=== PATIENT | male | born 1955 | race Caucasian/White ===

== ENCOUNTER 2017-02-19 00:52 | Inpatient (IN) | payer OTHER ==
[2017-02-19] VITALS (23 sets, daily range): BP systolic 92–121; BP diastolic 49–81
[~2017-02-19] VITALS: Ht 172.7 cm; Wt 62.4 kg
[2017-02-19 01:35] LABS: EOSINOPHILS % (AUTO) 2.8 % (1.0-6.0); LYMPHOCYTES # (AUTO) 0.5 K/uL (1.0-4.8); LYMPHOCYTES % (AUTO) 13.6 % (22.0-44.0); MEAN CORPUSCULAR HGB CONC 31.3 G/dL (31.0-37.0); MEAN CORPUSCULAR VOLUME 70 fL (80-100); MONOCYTES # (AUTO) 0.7 K/uL (0.1-1.0); MONOCYTES % (AUTO) 17.1 % (2.0-9.0); NEUTROPHILS # (AUTO) 2.5 K/uL (1.8-7.7); NEUTROPHILS % (AUTO) 65.5 % (40.0-70.0); PLATELET COUNT (AUTO) 239 K/uL (150-450); RED BLOOD CELL COUNT(AUTO) 2.77 MIL/uL (4.50-5.90); WHITE BLOOD COUNT (AUTO) 3.9 K/uL (4.5-11.0)
[2017-02-19 01:36] LABS: HEMOGLOBIN 6.1 g/dL (13.5-17.5)
[2017-02-19 01:42] LABS: HEMATOCRIT 19.5 % (41-53)
[2017-02-19 01:49] LABS: ALANINE AMINOTRANSFERASE 49 U/L (12-78); ALBUMIN 2.8 g/dL (3.4-5.0); ANION GAP 8 mmol/L (8-16); ASPARTATE AMINOTRANSFERASE 83 U/L (15-37); BILIRUBIN,TOTAL 0.7 mg/dL (0.1-1.0); CALCIUM, TOTAL 7.9 mg/dL (8.8-10.5); CARBON DIOXIDE 26 mmol/L (22-29); CHLORIDE 97 mmol/L (98-107); CREATININE 0.81 mg/dL (0.60-1.30); GLOMERULAR FILTR. RATE CALC > 60 mL/min (>60); SODIUM SERUM 131 mmol/L (136-145); TOTAL PROTEIN, SERUM 7.3 g/dL (6.4-8.2); UREA NITROGEN, BLOOD 11 mg/dL (7-18)
[2017-02-19 01:55] LABS: POTASSIUM 2.9 mmol/L (3.5-5.1)
[2017-02-19] MEDS ORDERED: POTASSIUM CHLORIDE 20 MEQ ER TABLET PO ONE (02:15)
[2017-02-19] MEDS ORDERED: MAGNESIUM SULFATE 2 GM, MVI, ADULT NO.1 WITH VIT K 10 ML, THIAMINE HCL 100 MG, FOLIC AC... IV ONE ×10 (02:15→06:45)
[2017-02-19 02:20] LABS: RBC MORPHOLOGY COMMENT ABNORMAL RBC MORPH
[2017-02-19] MEDS ORDERED: PANTOPRAZOLE SODIUM 80 MG in SODIUM CHLORIDE 0.9% 100 ML IV SCH (05:45)
[2017-02-19] MEDS ORDERED: PANTOPRAZOLE SODIUM 40 MG/VIAL IVP ONE (05:45)
[2017-02-19] MEDS ORDERED: SODIUM CHLORIDE 0.9% 1,000 ML IV ONE (06:02)
[2017-02-19] MEDS ORDERED: MORPHINE SULFATE 4 MG/ML SYRINGE IVP PRN (06:45)
[2017-02-19 08:46] LABS: INR 1.1 (0.9-1.1); PROTHROMBIN TIME 11.1 SEC (9.4-11.6)
[2017-02-19 08:48] LABS: BASOPHILS % (AUTO) 0.9 % (0.0-2.0); EOSINOPHILS % (AUTO) 3.1 % (1.0-6.0); LYMPHOCYTES # (AUTO) 0.6 K/uL (1.0-4.8); LYMPHOCYTES % (AUTO) 21.6 % (22.0-44.0); MEAN CORPUSCULAR HEMOGLOBIN 23.3 pg (26.0-34.0); MEAN CORPUSCULAR HGB CONC 32.1 G/dL (31.0-37.0); MEAN CORPUSCULAR VOLUME 73 fL (80-100); MONOCYTES # (AUTO) 0.4 K/uL (0.1-1.0); MONOCYTES % (AUTO) 17.1 % (2.0-9.0); NEUTROPHILS # (AUTO) 1.5 K/uL (1.8-7.7); NEUTROPHILS % (AUTO) 57.3 % (40.0-70.0); PLATELET COUNT (AUTO) 179 K/uL (150-450); RED CELL DISTRIBUTION WIDTH 19.8 % (11.5-14.5); WHITE BLOOD COUNT (AUTO) 2.6 K/uL (4.5-11.0)
[2017-02-19 08:51] LABS: ALANINE AMINOTRANSFERASE 40 U/L (12-78); ALBUMIN 2.3 g/dL (3.4-5.0); ANION GAP 7 mmol/L (8-16); ASPARTATE AMINOTRANSFERASE 75 U/L (15-37); BILIRUBIN,TOTAL 0.9 mg/dL (0.1-1.0); CALCIUM, TOTAL 7.1 mg/dL (8.8-10.5); CARBON DIOXIDE 26 mmol/L (22-29); CHLORIDE 103 mmol/L (98-107); GLOMERULAR FILTR. RATE CALC > 60 mL/min (>60); POTASSIUM 3.7 mmol/L (3.5-5.1); SODIUM SERUM 136 mmol/L (136-145); TOTAL PROTEIN, SERUM 6.2 g/dL (6.4-8.2); UREA NITROGEN, BLOOD 8 mg/dL (7-18)
[2017-02-19 08:54] LABS: HEMOGLOBIN 6.3 g/dL (13.5-17.5)
[2017-02-19 08:55] LABS: HEMATOCRIT 19.6 % (41-53)
[2017-02-19] MEDS ORDERED: THIAMINE HCL 100 MG/ML 2ML VIAL IM ONE (09:00)
[2017-02-19 10:10] LABS: RBC MORPHOLOGY COMMENT ABNORMAL RBC MORPH
[2017-02-19] MEDS ORDERED: MAGNESIUM HYDROXIDE SUSPENSION 30 ML UDCUP PO PRN (11:15)
[2017-02-19 15:13] LABS: BASOPHILS # (AUTO) 0.02 K/uL (0.00-0.20); BASOPHILS % (AUTO) 0.7 % (0.0-2.0); EOSINOPHILS # (AUTO) 0.12 K/uL (0.00-0.70); EOSINOPHILS % (AUTO) 3.75 % (1.0-6.0); HEMATOCRIT 25.4 % (41-53); LYMPHOCYTES # (AUTO) 0.8 K/uL (1.0-4.8); LYMPHOCYTES % (AUTO) 23.6 % (22.0-44.0); MEAN CORPUSCULAR HEMOGLOBIN 23.9 pg (26.0-34.0); MEAN CORPUSCULAR HGB CONC 31.7 G/dL (31.0-37.0); MEAN CORPUSCULAR VOLUME 75 fL (80-100); MONOCYTES # (AUTO) 0.6 K/uL (0.1-1.0); MONOCYTES % (AUTO) 19.2 % (2.0-9.0); NEUTROPHILS # (AUTO) 1.8 K/uL (1.8-7.7); NEUTROPHILS % (AUTO) 52.8 % (40.0-70.0); PLATELET COUNT (AUTO) 174 K/uL (150-450); RED BLOOD CELL COUNT(AUTO) 3.37 MIL/uL (4.50-5.90); RED CELL DISTRIBUTION WIDTH 19.3 % (11.5-14.5); WHITE BLOOD COUNT (AUTO) 3.3 K/uL (4.5-11.0)
[2017-02-19 15:38] LABS: RBC MORPHOLOGY COMMENT ABNORMAL RBC MORPH
[2017-02-19] MEDS ORDERED: PERMETHRIN 5% 60 GM CREAM TP ONE (15:45)
[2017-02-19] MEDS ORDERED: PNEUMOCOCCAL VACCINE POLYVALENT 0.5 ML VIAL [PPSV23] IM ONE (19:15)
[2017-02-19] MEDS: DOCUSATE SODIUM 100 MG CAPSULE PO SCH (20:32)
[2017-02-20 05:03] VITALS: BP 115/82
[2017-02-20 07:06] LABS: BASOPHILS % (AUTO) 0.1 % (0.0-2.0); EOSINOPHILS % (AUTO) 5.7 % (1.0-6.0); HEMATOCRIT 25.7 % (41-53); HEMOGLOBIN 8.4 g/dL (13.5-17.5); LYMPHOCYTES # (AUTO) 0.8 K/uL (1.0-4.8); LYMPHOCYTES % (AUTO) 19.2 % (22.0-44.0); MEAN CORPUSCULAR HEMOGLOBIN 24.5 pg (26.0-34.0); MEAN CORPUSCULAR HGB CONC 32.6 G/dL (31.0-37.0); MEAN CORPUSCULAR VOLUME 75 fL (80-100); MONOCYTES # (AUTO) 0.7 K/uL (0.1-1.0); MONOCYTES % (AUTO) 15.1 % (2.0-9.0); NEUTROPHILS # (AUTO) 2.6 K/uL (1.8-7.7); NEUTROPHILS % (AUTO) 59.9 % (40.0-70.0); PLATELET COUNT (AUTO) 174 K/uL (150-450); RED BLOOD CELL COUNT(AUTO) 3.42 MIL/uL (4.50-5.90); RED CELL DISTRIBUTION WIDTH 18.5 % (11.5-14.5); WHITE BLOOD COUNT (AUTO) 4.4 K/uL (4.5-11.0)
[2017-02-20 07:44] VITALS: BP 99/59
[2017-02-20] MEDS: DOCUSATE SODIUM 100 MG CAPSULE PO SCH ×2 (08:30→21:00)
[2017-02-20 10:19] LABS: RBC MORPHOLOGY COMMENT ABNORMAL RBC MORPH
[2017-02-20 11:28] VITALS: BP 105/71
[2017-02-20] MEDS: MULTIVITAMINS WITH MINERALS, THERAPEUTIC TABLET PO SCH (12:38)
[2017-02-20] MEDS: PANTOPRAZOLE SODIUM 40 MG DR TABLET PO SCH ×2 (12:38→21:05)
[2017-02-20] MEDS: FERROUS SULFATE 325 MG EC TABLET PO SCH ×2 (12:38→19:19)
[2017-02-20] MEDS ORDERED: 0.9% SODIUM CHLORIDE 5 ML NEB SOLUTION NEB ONE ×2 (14:25→21:23)
[2017-02-20] MEDS: ALBUTEROL SULFATE 2.5 MG/0.5 ML NEB SOLUTION NEB PRN ×2 (14:30→21:24)
[2017-02-20 15:26] VITALS: BP 105/68
[2017-02-20 19:27] VITALS: BP 105/84
[2017-02-20 23:50] VITALS: BP 100/60
[2017-02-21] VITALS (13 sets, daily range): BP systolic 94–110; BP diastolic 57–69
[2017-02-21 06:27] LABS: BASOPHILS # (AUTO) 0.01 K/uL (0.00-0.20); BASOPHILS % (AUTO) 0.2 % (0.0-2.0); EOSINOPHILS # (AUTO) 0.26 K/uL (0.00-0.70); EOSINOPHILS % (AUTO) 4.44 % (1.0-6.0); HEMATOCRIT 24.8 % (41-53); HEMOGLOBIN 7.8 g/dL (13.5-17.5); LYMPHOCYTES # (AUTO) 1.1 K/uL (1.0-4.8); LYMPHOCYTES % (AUTO) 18.1 % (22.0-44.0); MEAN CORPUSCULAR HEMOGLOBIN 23.8 pg (26.0-34.0); MEAN CORPUSCULAR HGB CONC 31.3 G/dL (31.0-37.0); MEAN CORPUSCULAR VOLUME 76 fL (80-100); MONOCYTES # (AUTO) 0.7 K/uL (0.1-1.0); MONOCYTES % (AUTO) 12.6 % (2.0-9.0); NEUTROPHILS # (AUTO) 3.7 K/uL (1.8-7.7); NEUTROPHILS % (AUTO) 64.7 % (40.0-70.0); PLATELET COUNT (AUTO) 168 K/uL (150-450); RED BLOOD CELL COUNT(AUTO) 3.26 MIL/uL (4.50-5.90); RED CELL DISTRIBUTION WIDTH 19.7 % (11.5-14.5); WHITE BLOOD COUNT (AUTO) 5.8 K/uL (4.5-11.0)
[2017-02-21 07:22] LABS: RBC MORPHOLOGY COMMENT ABNORMAL RBC MORPH
[2017-02-21] MEDS: FERROUS SULFATE 325 MG EC TABLET PO SCH ×3 (08:32→18:01)
[2017-02-21] MEDS: MULTIVITAMINS WITH MINERALS, THERAPEUTIC TABLET PO SCH (08:32)
[2017-02-21] MEDS: PANTOPRAZOLE SODIUM 40 MG DR TABLET PO SCH ×2 (08:32→20:39)
[2017-02-21] MEDS: DOCUSATE SODIUM 100 MG CAPSULE PO SCH ×2 (08:32→20:39)
[2017-02-21] MEDS ORDERED: SODIUM CHLORIDE 0.9% 100 ML ONE (14:13)
[2017-02-21] MEDS: ACETAMINOPHEN 325 MG TABLET PO PRN (14:28)
[2017-02-22 04:52] VITALS: BP 98/63
[2017-02-22 08:04] VITALS: BP 122/79
[2017-02-22] MEDS: MULTIVITAMINS WITH MINERALS, THERAPEUTIC TABLET PO SCH (09:40)
[2017-02-22] MEDS: FERROUS SULFATE 325 MG EC TABLET PO SCH ×3 (09:40→17:11)
[2017-02-22] MEDS: DOCUSATE SODIUM 100 MG CAPSULE PO SCH ×2 (09:40→20:58)
[2017-02-22] MEDS: PANTOPRAZOLE SODIUM 40 MG DR TABLET PO SCH ×2 (09:40→20:58)
[2017-02-22 12:21] VITALS: BP 115/75
[2017-02-22] MEDS ORDERED: PERMETHRIN 5% 60 GM CREAM TP ONE (15:00)
[2017-02-22 15:54] VITALS: BP 115/80
[2017-02-22 20:10] VITALS: BP 95/50
[2017-02-22] MEDS: ACETAMINOPHEN 325 MG TABLET PO PRN (20:59)
[2017-02-22 23:01] VITALS: BP 114/64
[2017-02-23 04:19] VITALS: BP 123/73
[2017-02-23 07:26] VITALS: BP 131/69
[2017-02-23] MEDS: MULTIVITAMINS WITH MINERALS, THERAPEUTIC TABLET PO SCH (09:10)
[2017-02-23] MEDS: FERROUS SULFATE 325 MG EC TABLET PO SCH ×2 (09:10→11:54)
[2017-02-23] MEDS: PANTOPRAZOLE SODIUM 40 MG DR TABLET PO SCH (09:10)
[2017-02-23] MEDS: DOCUSATE SODIUM 100 MG CAPSULE PO SCH (09:10)
[2017-02-23 11:30] VITALS: BP 132/66
[2017-02-23] MEDS ORDERED: FERR-89 PO (15:26)
[2017-02-23] MEDS ORDERED: CEPH500 PO (15:27)
[2017-02-23] MEDS ORDERED: OMEP20 PO (15:27)
[2017-02-23 15:59] VITALS: BP 110/76
== END 2017-02-23 16:20 | disposition home or self-care (01) | DRG 663 ==
LOC: EMS 00:54 → 5S 06:53
PROVIDERS: ADMIT Internal Medicine; ATTEND Internal Medicine
PROC: 30233N1 Transfusion of Nonautologous Red Blood Cells into Peripheral Vein, Percutaneous Approach (ICD-10-PCS; principal; 2017-02-19)
PROC: 3E0234Z Introduction of Serum, Toxoid and Vaccine into Muscle, Percutaneous Approach (ICD-10-PCS; 2017-02-20)
DX: D50.0 Iron deficiency anemia secondary to blood loss (chronic) (principal); E43 Unspecified severe protein-calorie malnutrition; J44.9 Chronic obstructive pulmonary disease, unspecified; B86 Scabies; F17.200 Nicotine dependence, unspecified, uncomplicated; F41.9 Anxiety disorder, unspecified; F19.10 Other psychoactive substance abuse, uncomplicated; Z91.19 Patient's noncompliance with other medical treatment and regimen; Z59.0 Homelessness; Z87.01 Personal history of pneumonia (recurrent); Z23 Encounter for immunization
CPT/HCPCS: 80307; 86850; 86900; 86901; 86920; 90471; 93005; 94640; 96365; 96366; 96368; 96375; 97161; 97530; 99291; C9113; J3411; J3475; J3490; J7030; J7050; P9016